=== PATIENT | male | born 1955 | race African-American/Black ===

== ENCOUNTER 2019-11-26 12:32 | Day surgery (SDC) | payer BC ==
[~2019-11-26] VITALS: Ht 175.3 cm; Wt 74.8 kg
--- NOTE | ~2019-11-26 | O ---
[facility] [place] [address] OPERATIVE REPORT Name: OMALLEYGARY Kiki Room #: 150-1 [facility]..#: [id number] Admission: 11/26/19 Attend Phys: Jayjay Correa MD Discharge: Date of : 57 Report #: [id number] THIS REPORT FOR: //name// CC: Baldev Vasquez PREOPERATIVE DIAGNOSIS: Symptomatic left inguinal hernia. POSTOPERATIVE DIAGNOSIS: Symptomatic left inguinal hernia with indirect hernia sac found. PROCEDURE PERFORMED: Laparoscopic repair of left inguinal hernia via properitoneal approach with mesh. ANESTHESIA: General. SURGEON: Jayjay Correa MD COMPLICATIONS: None. ESTIMATED BLOOD LOSS: 15 mL. PROCEDURE NOTE: With the patient under general anesthesia, IV antibiotic was administered. Brown catheter was placed to decompress the bladder. Timeout was performed. A 0.25% Marcaine was used to anesthetize the skin adjacent to the umbilicus on the left side of the umbilicus in a transverse manner. Incision is about 2 cm. After incising through the skin and subcutaneous tissue, the anterior rectus fascia was identified. This was incised transversely. The patient had a wide midline and dissection was carried laterally. There is a muscular bleeder in the right underneath the fascia. This was identified, cauterized. Hemostasis obtained. The muscle lateral to this area was then spread with hemostat. Posterior fascia was identified. The space between the muscle and the posterior sheath was then dissected bluntly inferiorly. This allowed entrance to the properitoneal space. An 11 mm balloon trocar was placed through the space. CO2 was placed. Under visualization, a 5 mm trocar was placed about 2 inches below the umbilicus into the properitoneal space. This was identified with the camera placed in the 11 mm trocar. No harm to the underlying tissue. Cautery was used for hemostasis. The rest of properitoneal space was then opened up. The midline was dissected open and a second 5 mm trocar was placed about 2 inches below the initial 5 mm trocar. This was placed slightly right side of the midline. Properitoneal space was then opened up completely. The pubic bone was identified. Midline was identified and dissected into the right side. Lateral to the inferior epigastric vessel was identified. Lateral to the epigastric vessel, the abdominal wall was opened up freeing the cord structure from the wall. A distinct indirect hernia sac was identified. The indirect hernia sac was fairly large, this was free from the [facility] [address] [place] [address] OPERATIVE REPORT Name: SHAHRAMGARY D Room #: 150-[address] [facility]..#: [id number] Admission: 11/26/19 Attend Phys: Jayjay Correa MD Discharge: Date of : 57 Report #: [id number] underlying cord structure. This was reduced with cautery and blunt dissection. The entire sac was freed off the cord. The sac was then brought back down into the properitoneal space. The cord structure was isolated. A large left-sided 3DMax lightweight mesh was then placed through the 11 mm trocar. This was opened in the properitoneal space. This was then seated to cover the internal ring and lateral to it. Medially, the mesh was covering the pubic bone. The mesh was then tacked with SorbaFix lateral superiorly to the abdominal wall. Inferior medially to the Jackson's ligament just above the pubic bone and then superomedially to the rectus muscle. The mesh seated well. The sac was identified and guided medial to the mesh. CO2 was evacuated. Trocars then removed. There was no bleeding at the fascial level, but particular tension to the vessel that was controlled with cautery. The fascia was then closed with [id number] 0 Vicryl x 2. Skin was irrigated. Skin was then closed with 5-0 PDS. Steri-Strip, Band-Aids applied. The patient awakened and taken to recovery room. Brown catheter was removed. By: 30 58 Jayjay Correa MD /nt
[~2019-11-26 12:32] MED LIST: DYAZIDE 37.5-21 EACH PO
[2019-11-26 13:18] LABS: CALCIUM 9.8 mg/dL (8.5-10.1); CREATININE 0.9 mg/dL (0.7-1.3); POTASSIUM 3.9 mmol/L (3.5-5.1)
[2019-11-26 13:31] VITALS: BP 172/96
[2019-11-26] MEDS ORDERED: NORCO 5-325 TA1 EAC1 PO (16:19)
[2019-11-26 16:37] VITALS: BP 172/96
--- NOTE | 2019-11-26 16:51 | H ---
[facility] [place] [address] HISTORY AND PHYSICAL Name: GARY OMALLEY Kiki Room #: 150-1 [facility]..#: [id number] Admission: 11/26/19 Attend Phys: Jayjay Correa MD Discharge: Date of : 57 Report #: [id number] THIS REPORT FOR: //name// CC: Baldev Correa PREOPERATIVE DIAGNOSIS: Symptomatic left inguinal hernia. HISTORY OF PRESENT ILLNESS: The patient is a 64-year-old who is here for treatment of a left inguinal hernia. He noticed the bulge about 2 months ago. It is getting larger. The patient says that it feels like he has got an extra scrotum there. It is uncomfortable. He is able to push it back in. He probably did notice that after coughing or sneezing and it protruded out. The patient does do heavy work at the school district. No straining with bowel movement and urination. The patient does have problem with stiffness of his back. He has chronic morning cough that is not real severe. No history of sneezing. No prior hernia surgery. No family history of hernias. The patient is here for repair. PAST MEDICAL HISTORY: Has a history of high blood pressure. Denies heart disease, denies diabetes, denies lung disease, denies liver disease, denies kidney disease, denies bleeding disorder, denies history of blood clot. MEDICATIONS: Triamterene/HCTZ 37.5 and 25 mg once daily. PAST SURGICAL HISTORY: No prior surgery. ALLERGIES: None. FAMILY HISTORY: Unremarkable. SOCIAL HISTORY: The patient is a labor, works for the school district. The patient does smoke, 40-year history pack a day. He does drink every day. Alcohol every day. REVIEW OF SYSTEMS: Occasional back issues. No chest pain, shortness of breath. No numbness or weakness. PHYSICAL EXAMINATION: GENERAL: The patient is well-nourished male in no acute distress. HEENT: Pupils react to light. Extraocular muscles are intact. Oropharynx is clear. NECK: Soft and supple, no masses, no JVD. LUNGS: Clear to auscultation. HEART: Regular rate and rhythm. No murmur or gallop. ABDOMEN: Soft, nondistended, nontender. No mass, no ascites. No umbilical hernia. The patient does have a prominent left inguinal hernia, which is [address] [address] HISTORY AND PHYSICAL Name: GARY OMALLEY Room #: 150-1 [facility]#: [id number] Admission: 11/26/19 Attend Phys: Jayjay Correa MD Discharge: Date of : 57 Report #: [id number] reducible. No hernia on the right side. Testicles are descended and normal. EXTREMITIES: No cyanosis, clubbing or edema. Motor and sensory exam normal. IMPRESSION: The patient is a 64-year-old with a symptomatic left inguinal hernia. The patient is here for repair. Laparoscopic approach was discussed. The patient wishes to proceed. Risks of the procedure including bleeding, infection, hernia recurrence, mesh infection was discussed. The patient wishes to proceed. <ELECTRONICALLY SIGNED> By: Jayjay Correa MD 11/26/19 1651 1029 1051 Jayjay Correa MD /nt
--- NOTE | 2019-11-27 14:22 | EKG ---
[address] [address] ELECTROCARDIOGRAM REPORT Name: GARY OMALLEY Room #: [facility].#: [id number] Admission: 11/26/19 Attend Phys: Jayjay Correa MD Discharge: 11/26/19 Date of : 57 Report #: [id number] THIS REPORT FOR: //name// [facility] Test Date: 2019-11-26 Test Time: 13:14:14 Pat Name: GARY RIZOES Department: Room: 150 1 Gender: M Director Market Intelligence: JULIANNA : 1955 Requested By: Jayjay Correa Order Number: [id number] MD: Juan Diego Feliciano Measurements Intervals Hastings Rate: 87 P: 0 NM: 58 QRS: 3 QRSD: 81 T: QT: 361 QTc: 435 Interpretive Statements Sinus rhythm Short NM interval Nonspecific T abnormalities, lateral leads Baseline wander in lead(s) I,II,III,aVR,aVF,V1 No previous ECG available for comparison Electronically Signed On 11-27-2019 14:21:33 SOFTWARE QUALITY TEST ENGINEER by Juan Diego Feliciano [email or web address] <ELECTRONICALLY SIGNED> By: Juan Diego Feliciano MD 11/27/19 1421 1314 1314 Juan Diego Feliciano MD /EPI
== END 2019-11-26 17:20 | disposition home or self-care (01) ==
LOC: OR 12:32 → TBA 12:39 → OR 12:45
PROVIDERS: Surgery
DX: K40.90 Unilateral inguinal hernia, without obstruction or gangrene, not specified as recurrent (principal); I10 Essential (primary) hypertension; F17.210 Nicotine dependence, cigarettes, uncomplicated; Z98.890 Other specified postprocedural states; Z79.899 Other long term (current) drug therapy
CPT/HCPCS: 50010; 50101; 50249; 50411; 50455; 50507; 50555; 50848; 53065; 53307; 56525; 56526; 62110; 62900; 70005